=== PATIENT | male | born 1950 | race Caucasian/White ===

== ENCOUNTER 2019-04-04 09:00 | Outpatient (RCR) | payer MEDICARE, SELFPAY ==
--- NOTE | 2019-02-24 09:23 | [facility]H.PTOPWND ---
Rehab Outpt Wound Evaluation Rehab OP Wound Evaluation Start: 02/24/19 08:55 Freq: Status: Active Protocol: Document 02/24/19 09:15 [facility] (Rec: 02/24/19 09:23 [facility] [id number]) Electronically Signed By Miko Noel, PT 02/24/19 09:15 Subjective/History History History Pt is 68 yowm who presents with c/o dagmar LE edema x ~ 3-4 yrs with insidious onset of symptoms and gradually worsening, left LE worse than right. He reports edema is decreased in the am and worsenens throughout the day, also decreases with elevation. He has difficulty with elevation of LE due to parkinson's disease and associated rigidity. He reports no c/o pain at rest, but very tender to palpation especially in the gaitor area B. He has had multiple bout of cellulitis in B LE with 3-4 last year alone. He has hx of HTN, PE, renal insufficiency, parkinson's disease with a implanted deep brain stimulator. Subjective Subjective Currently no c/o pain, but 2+/ 4 tenderness to palpation to B lower legs. Lymphedema Eval Classification of Lymphedema Secondary Lymphedema Yes Stemmer's sign Stemmer's Sign no Stage of Lymphedema Lymphedema stages Stage I (Pitting edema, reduces w/ elevation, no fibrosis) Skin Changes Dry Skin Yes Taut, Shiny Skin Yes Redness Yes Brittle Uneven Nails Yes Discoloration of Skin Yes Other Changes Yes Affected Extremities Areas Affected by Lymphedema/Edema Right Lower Extremity,Left Lower Extremity Manual Lymphatic Drainage Treatment Area MLD Treatment Area Right Lower Extremity,Left Lower Extremity Wound Problems/Impairments Impairments Problems/Impairmments Palpation Tenderness,Impaired Range of Motion,Impaired Strength,Impaired Endurance, Impaired Transfers,Impaired Gait Patter
== END 2019-04-04 09:05 | disposition home or self-care (01) ==
LOC: PT 09:00
PROVIDERS: Visit Provider Podiatrist
DX: R60.0 Localized edema (principal)
CPT/HCPCS: 97110; 97112; 97140; 97162; 97760

== ENCOUNTER 2022-06-02 01:00 | Emergency (ER) | payer MEDICARE, SELFPAY ==
[2022-06-02 00:50] VITALS: BP 130/72; PULSE 69; RESP 16; TEMP 36.6; O2SAT 95; BMI 28.8
--- NOTE | 2022-06-02 00:59 | CT_ITS ---
PROCEDURE INFORMATION: Exam: CT Head Without Contrast Exam date and time: 06/02/2022 1:13 AM Age: 72 years old Clinical indication: Injury or trauma; Fall; Prior surgery; Surgery type: Deep brain stimulator TECHNIQUE: Imaging protocol: Computed tomography of the head without contrast. Radiation optimization: All CT scans at this facility use at least one of these dose optimization techniques: automated exposure control; mA and/or kV adjustment per patient size (includes targeted exams where dose is matched to clinical indication); or iterative reconstruction. COMPARISON: No relevant prior studies available. FINDINGS: Tubes, catheters and devices: Electronic stimulator leads in place with their tips in the thalami. Brain: Age appropriate atrophy and small vessel ischemic change. No evidence of intracranial hemorrhage, mass effect, midline shift or extra-axial fluid collections. Midline structures are normal. [place]-white matter differentiation is normal. Cerebral ventricles: No ventriculomegaly. Paranasal sinuses: Visualized sinuses are unremarkable. No fluid levels. Mastoid air cells: Visualized mastoid air cells are well aerated. Orbital cavities: The patient has had bilateral lens replacement surgery. Bones/joints: Unremarkable. No acute fracture. Soft tissues: Unremarkable. Vasculature: Carotid and vertebral artery atherosclerotic calcification. IMPRESSION: No acute intracranial injury.
--- NOTE | 2022-06-02 00:59 | CT_ITS ---
PROCEDURE INFORMATION: Exam: CT Cervical Spine Without Contrast Exam date and time: 06/02/2022 1:13 AM Age: 72 years old Clinical indication: Injury or trauma; Fall; Prior surgery; Surgery type: Deep brain stimulator TECHNIQUE: Imaging protocol: Computed tomography of the cervical spine without contrast. Radiation optimization: All CT scans at this facility use at least one of these dose optimization techniques: automated exposure control; mA and/or kV adjustment per patient size (includes targeted exams where dose is matched to clinical indication); or iterative reconstruction. COMPARISON: No relevant prior studies available. FINDINGS: Bones/joints: There are mild degenerative changes present. Normal alignment. No acute fractures. Thyroid: There is a 1.4 cm cyst or nodule in the right lobe of the thyroid. Lungs: Lung apices are normal. Soft tissues: Unremarkable. Electronic stimulator leads in the soft tissues of the left side of the neck. IMPRESSION: No acute injury. COMMENTS: Consistent with the [employer]'s Incidental Findings Committee white paper (J [employer] Tri Radiol 2015): In patients aged 35 years and older with an incidental thyroid nodule equal to or greater than 1.[address], MRI or extrathyroidal US, further evaluation with dedicated thyroid US is recommended for patients with normal life expectancy and without comorbidities. For smaller nodules without suspicious features, no further evaluation or follow up is recommended.
--- NOTE | 2022-06-02 00:59 | XR_ITS ---
PROCEDURE INFORMATION: Exam: XR Chest Exam date and time: 06/02/2022 1:17 AM Age: 72 years old Clinical indication: Injury or trauma; Fall; Blunt trauma (contusions or hematomas); Prior surgery; Surgery type: Deep brain stimulator TECHNIQUE: Imaging protocol: Radiologic exam of the chest. Views: 1 view. COMPARISON: CT CERVICAL SPINE WO CON 06/02/2022 1:13 AM FINDINGS: Tubes, catheters and devices: Deep brain stimulator device partially visualized within the left chest and neck. Lungs: Normal. Pleural spaces: Unremarkable. No pleural effusion. No pneumothorax. Heart/Mediastinum: Normal. Vasculature: Minimal atherosclerotic disease of the thoracic aorta. Bones/joints: No acute abnormality. Organs: Cholecystectomy clips within the right upper abdomen. IMPRESSION: No acute cardiopulmonary abnormality.
--- NOTE | 2022-06-02 00:59 | XR_ITS ---
PROCEDURE INFORMATION: Exam: XR Pelvis Exam date and time: 06/02/2022 1:18 AM Age: 72 years old Clinical indication: Injury or trauma; Fall; Blunt trauma (contusions or hematomas); Does not apply; Patient HX: Patient denies pain in pelvic region TECHNIQUE: Imaging protocol: Radiologic exam of the pelvis. Views: 1 or 2 view. COMPARISON: No relevant prior studies available. FINDINGS: Bones/joints: Normal. Soft tissues: Unremarkable. Intraperitoneal space: Surgical clips within the right lower abdomen. Vasculature: Phleboliths within the pelvis IMPRESSION: No acute abnormality.
[2022-06-02 01:07] LABS: Basophils # 0.1 K/mm3 (0-0.2); Basophils % 1.5 % (0.1-2.0); Eosinophils # 0.2 K/mm3 (0.0-0.4); Eosinophils % 2.9 % (0.1-12.0); Hematocrit 36.6 % (42.0-52.0); Hemoglobin 12.2 g/dL (14.1-18.0); Lymphocytes # 2.2 K/mm3 (0.7-4.5); Lymphocytes % 35.7 % (10-50); Mean Corpuscular HGB Conc 33.3 g/dL (31.8-35.4); Mean Corpuscular Hemoglobin 31.5 pg (27.0-31.2); Mean Corpuscular Volume 94.5 fl (80-94); Mean Platelet Volume 7.9 fl (7.4-10.4); Monocytes # 0.4 K/mm3 (0.1-1.0); Monocytes % 6.1 % (1.7-9.3); Neutrophils # 3.2 K/mm3 (1.8-7.8); Neutrophils % 53.8 % (37.0-80.0); Platelet Count 256 K/mm3 (142-424); Red Blood Count 3.87 M/mm3 (4.60-6.20)
[2022-06-02 01:16] LABS: Chloride 104 mmol/L (98-107); Potassium 4.6 mmoL/L (3.5-5.1); Sodium 139 mmol/L (136-145)
[2022-06-02 01:18] LABS: Activated Partial Thrombo Time 28.3 seconds (22.8-30.6); INR 1.06 (0.9-1.1); Prothrombin Time 11.4 seconds (10.1-12.5)
[2022-06-02 01:19] LABS: Alanine Aminotransferase 10 U/L (12-78); Albumin Level 3.6 g/dl (3.5-5.0); Albumin/Globulin Ratio 1.2 (1.1-1.8); Alkaline Phosphatase 101 U/L (38-126); Anion Gap 13.6 mEq/L (5-15); Aspartate Amino Transferase 38 U/L (17-59); Bilirubin,Total 0.3 mg/dl (0.2-1.3); Blood Urea Nitrogen 20 mg/dl (9-20); Carbon Dioxide 26 mmol/L (22.0-30.0); Creatinine Clearance Estimated 91 mL/min (50-200); Estimated Glomerular Filt Rate 73 ml/min (>60); GFR (African American) 89 ML/MIN (>60); Total Protein,Serum 6.6 g/dl (6.3-8.2)
[2022-06-02 01:20] LABS: Glucose 115 mg/dl (74-100)
--- NOTE | 2022-06-02 02:03 | HMH.EDFALL ---
Discharge Plan Disposition Patient Disposition: Home, Self-Care Chief Complaint: Fall Prescriptions Prescriptions: No Action hydralazine 25 mg tablet 25 mg PO TID clonidine HCl 0.1 mg tablet 0.1 mg PO QHS ferrous sulfate 325 mg (65 mg iron) tablet 325 mg PO DAILY dutasteride [Avodart] 0.5 mg capsule 0.5 mg PO DAILY colchicine [Colcrys] 0.6 mg tablet 0.6 mg PO DAILY quetiapine 25 mg tablet 25 mg PO DAILY Neupro 2 mg/24 hour patch 24 hour 2 mg TRANSDERMA [place] Sprinkle 50 mg capsule,sprinkle,ER 24hr 50 mg PO hydralazine 50 mg tablet 50 mg PO QID tamsulosin 0.4 mg capsule PO 90 Days furosemide 20 mg tablet PO 90 Days allopurinol 100 mg tablet PO 90 Days finasteride 5 mg tablet PO 90 Days clonazepam 0.5 mg tablet PO 90 Days omeprazole 20 mg capsule,delayed release(DR/EC) PO 90 Days promethazine 25 mg tablet 25 mg PO Q6H PRN Eliquis 5 mg tablet 5 mg PO BID amlodipine 5 mg tablet 5 mg PO DAILY atropine sulfate (PF) 1 % eye drops 1 % drops OPHTHALMIC carbidopa-levodopa 25-100 mg tablet 0.5 tab PO QID 90 Days Qty: 180 urea 40 % cream 1 applic topical BID Qty: 28 0RF escitalopram oxalate 10 mg tablet 10 mg PO DAILY Referrals Follow up/Referrals: Hector Acuna [Primary Care Provider] - See instructions Clinical Impressions Clinical Impression: Falls frequently, Parkinson disease Instructions Patient Instructions: How to Prevent Falls Discharge ED Provider: Nigel Sanchez Fall HPI General Chief Complaint: Fall Stated Complaint: fall Time Seen by Provider: 06/02/22 01:00 Mode of Arrival: EMS Source of Information: Patient, Spouse, EMS and Medical Record Limitations: parkinsons related gait instability Description of Symptoms (Recalled from ER Triage Doc. by RN): 72 yo male presents with chief complaint: fall; brought by [facility], c-collar in place. A&o x4. Verbal, speech is slurred, but ems states that said is normal. States his head wasn't hit but his neck hurts posteriorly, additionally has achey pain in his shoulders and pelvis. PMH: RENAL cancer, stage III Kidney failure, sleep apnea, Parkinson's, PE's; PSH: vasectomy, rt nephrectomy, deep brain stimulator, prostate surgery, hernia repair and cataract surgery. Currently takes Eliquis for the PE's. History of Present Illness HPI Narrative: pt with fall at home with hx of falls sec to sig parkinson dis - on eliquis - no chest pain MD complaint: fall Onset (ago): hour(s) Fall from: standing Fall witnessed: yes, by family Place fall occurred: home Loss of consciousness: none Prolonged down time: no Symptoms prior to fall: none Context: history of frequent falls Location of injury: head and neck Severity: moderate Associated symptoms (after fall): headache Related Data Home Medications Medication Instructions Recorded Confirmed allopurinol 100 mg tablet PO 90 days 09/10/18 05/31/22 amlodipine 5 mg tablet 5 mg PO DAILY 09/10/18 05/31/22 apixaban 5 mg tablet (Eliquis) 5 mg PO BID 09/10/18 05/31/22 atropine sulfate (PF) 1 % eye drops % ophthalmic (eye) 09/10/18 05/31/22 clonazepam 0.5 mg tablet PO 90 days 09/10/18 05/31/22 finasteride 5 mg tablet PO 90 days 09/10/18 05/31/22 furosemide 20 mg tablet PO 90 days 09/10/18 05/31/22 omeprazole 20 mg capsule,delayed PO 90 days 09/10/18 05/31/22 release promethazine 25 mg tablet 25 mg PO Q6H PRN 09/10/18 05/31/22 tamsulosin 0.4 mg capsule PO 90 days 09/10/18 05/31/22 clonidine HCl 0.1 mg tablet 0.1 mg PO QHS 11/19/18 05/31/22 colchicine 0.6 mg tablet (Colcrys) 0.6 mg PO DAILY 11/19/18 05/31/22 dutasteride 0.5 mg capsule 0.5 mg PO DAILY 11/19/18 05/31/22 (Avodart) ferrous sulfate 325 mg (65 mg 325 mg PO DAILY 11/19/18 05/31/22 iron) tablet hydralazine 25 mg tablet 25 mg PO TID 11/19/18 05/31/22 quetiapine 25 mg tab
[2022-06-02 04:31] VITALS: BP 126/79; PULSE 81; RESP 19; TEMP 36.7; O2SAT 95
== END 2022-06-02 04:33 | disposition home or self-care (01) ==
PROVIDERS: Emergency Provider Emergency Medicine; PCP Family Medicine
DX: R47.81 Slurred speech (principal); M54.2 Cervicalgia; R51.9 Headache, unspecified; N18.30 Chronic kidney disease, stage 3 unspecified; G47.30 Sleep apnea, unspecified; G20 Parkinson's disease; Z90.5 Acquired absence of kidney; Z79.01 Long term (current) use of anticoagulants; Z79.899 Other long term (current) drug therapy; Z96.82 Presence of neurostimulator; W19.XXXA Unspecified fall, initial encounter
CPT/HCPCS: 70450; 71045; 72125; 72170; 80053; 85025; 85610; 85730; 99285